=== PATIENT | female | born 1965 | race Two or more races ===

== ENCOUNTER → 2016-07-28 | Outpatient (CLI) | payer BC ==
--- NOTE | ~2016-07-28 | MY11 ---
[facility] A Service of [facility] & [facility] RADIOLOGY TEXT RESULTS PATIENT: ANMOL LAYTON LOCATION: [facility] : 67 UNIT #: [id number] AGE: [address]: BEATRIZ SUAREZ APRN SEX: F ORDER DR: [id number] [facility] [address] [place], [place] [address] [id number] O MR#: [id number] Acc #: [id number] NAME: ANMOL LAYTON : 1965 SEX: F STUDY DATE/TIME: 07/28/2016 9:59 UNIT: [facility] ROOM: STUDY DESCRIPTION: MY Mammogram Screening Dig Kirk Attending Physician: Beatriz Suarez Aprn Referring Physician: Beatriz Suarez Aprn Ordering Physician: Beatriz Suarez Aprn Primary Care Physician: Beatriz Suarez Aprn MEDICAL IMAGING REPORT This report is preliminary unless electronic signature is present EXAM Bilateral digital screening mammogram CAD DATE 07/28/2016 HISTORY No personal or family history of breast cancer or current complaints. COMPARISON None. This is the patient's baseline screening study. FINDINGS CC and MLO views were obtained of each breast utilizing digital technique and reviewed with an FDA-approved CAD device. Scattered fibroglandular densities are present bilaterally. Focal asymmetry is seen within the 12-1 o'clock axis left breast anterior third measuring slightly over 1 cm. It is more conspicuous on the CC view than on the MLO view. While I suspect it represents summation artifact, additional diagnostic imaging would be recommended for confirmation, given this is the patient's baseline exam. 3 small oval circumscribed nodules are demonstrated within the right breast. The largest of these measures approximately 6 mm near the 9 o'clock axis approximately 10 cm deep to the nipple. The second is seen more posteriorly measuring 7 mm, again close to the 9-10 o'clock axis. A third 4 mm nodule is seen near the 9 o'clock axis central third of the breast nearly 7.5 cm deep to the nipple. No suspicious clustered microcalcifications are seen. There is no architectural distortion. No abnormal skin thickening or nipple retraction is identified. [facility] A Service of [facility] & [facility] RADIOLOGY TEXT RESULTS PATIENT: ANMOL LAYTON LOCATION: [facility] : 67 UNIT #: [id number] AGE: [address]: BEATRIZ SUAREZ APRN SEX: F ORDER DR: IMPRESSION 1. BIRADS 0. Additional imaging required. There are 3 circumscribed subcentimeter nodules within the right breast, each close to the 9 to 9-10 o'clock axis. I suspect they represent benign findings such as cysts or intramammary lymph nodes, but confirmation utilizing targeted diagnostic right breast ultrasound would be recommended. 2. Focal asymmetry is demonstrated near the 12 o'clock axis left breast anterior third. While I suspect it represents summation artifact, dedicated spot compression in the mL and MLO plane would be recommended, and at the density persists, diagnostic left breast ultrasound may be obtained on the same day for complete evaluation. BIRADS 0. Patients over the age of 40 are entered into a reminder system with target due date for the next mammogram. A result letter will also be sent to the patient. BIRADS: 0 - Need additional imaging evaluation and/or prior mammograms for comparison Dictated by... Kaitlin Manning M.D. THIS IS AN ELECTRONICALLY VERIFIED REPORT Kaitlin Manning M.D. at 07/31/2016 8:32 AM Hedy TD: 07/28/2016 15:01 JOB #: [id number] MEDICAL IMAGING REPORT Page 1 of 1 COPY
== END | disposition home or self-care (01) ==
LOC: CWCC 09:41
DX: Z12.31 Encounter for screening mammogram for malignant neoplasm of breast (principal); N63 Unspecified lump in breast; N64.89 Other specified disorders of breast
CPT/HCPCS: G0202

== ENCOUNTER → 2016-08-25 | Outpatient (CLI) | payer BC ==
--- NOTE | ~2016-08-25 | US17 ---
[facility] A Service of [facility] & [facility] RADIOLOGY TEXT RESULTS PATIENT: ANMOL LAYTON LOCATION: [facility] : 67 UNIT #: [id number] AGE: [address]: BEATRIZ SUAREZ APRN SEX: F ORDER DR: [id number] [facility] [address] [place], [place] [address] [id number] O MR#: [id number] Acc #: [id number] NAME: ANMOL LAYTON : 1965 SEX: F STUDY DATE/TIME: 08/25/2016 9:23 UNIT: [facility] ROOM: STUDY DESCRIPTION: US Breast Bilateral Attending Physician: Beatriz Suarez Aprn Referring Physician: Beatriz Suarez Aprn Ordering Physician: Beatriz Suarez Aprn Primary Care Physician: Beatriz Suarez Aprn MEDICAL IMAGING REPORT This report is preliminary unless electronic signature is present EXAM Bilateral breast ultrasound COMPARISON Left diagnostic mammogram on the same date as well screening mammogram dated July 28, 2016. INDICATION 51-year-old female with a left breast focal asymmetry thought to reflect summation artifact on today's diagnostic mammography. Left breast ultrasound was indicated for further evaluation. The patient has other findings in the right breast on screening mammography for which sonographic evaluation was recommended. FINDINGS/IMPRESSION Please see separately dictated report of left diagnostic mammography on the same date for full sonographic findings in both breasts today as well as final impression and recommendations. In short, the finding in the left breast is consistent with summation artifact of normal fibroglandular tissues and is benign. In the right breast, 1 of the 3 findings of initial concern corresponds to an intramammary lymph node with normal morphology on sonography. There is a separate probable intramammary lymph node representing 1 of the other mammographic finding which is sonographically occult and the other third finding on screening mammography has the appearance suggesting normal fibroglandular tissue and is the smallest of the 3 findings. Given that these 2 mammographic findings are sonographically occult and the fact that these were seen on the patient's baseline exam, these are probably benign findings for which 6-month followup right diagnostic mammography is recommended to document stability. This may possibly be followed by right breast ultrasound if there is any change. [facility] A Service of [facility] & [facility] RADIOLOGY TEXT RESULTS PATIENT: ANMOL LAYTON LOCATION: [facility] : 67 UNIT #: [id number] AGE: [address]: BEATRIZ SUAREZ RECRUITMENT ASSISTANT SEX: F ORDER DR: BIRADS: 3 Probably benign finding; short interval followup suggested Dictated by... Juan Gaona M.D. THIS IS AN ELECTRONICALLY VERIFIED REPORT Juan Gaona M.D. at 08/30/2016 10:52 AM YASEMIN/corine TD: 08/25/2016 14:14 JOB #: [id number] MEDICAL IMAGING REPORT Page 1 of 1 COPY
--- NOTE | ~2016-08-25 | MY7 ---
[facility] A Service of [facility] & [facility] RADIOLOGY TEXT RESULTS PATIENT: ANMOL LAYTON LOCATION: [facility] : 67 UNIT #: [id number] AGE: [address]: BEATRIZ SUAREZ APRN SEX: F ORDER DR: [id number] [facility] [address] [place], [place] [address] [id number] O MR#: [id number] Acc #: [id number] NAME: ANMOL LAYTON : 1965 SEX: F STUDY DATE/TIME: 08/25/2016 8:55 UNIT: [facility] ROOM: STUDY DESCRIPTION: MY Mammogram Dx Dig Lt Attending Physician: Beatriz Suarez Aprn Referring Physician: Beatriz Suarez Aprn Ordering Physician: Beatriz Suarez Aprn Primary Care Physician: Beatriz Suarez Aprn MEDICAL IMAGING REPORT This report is preliminary unless electronic signature is present EXAM Left digital diagnostic mammogram COMPARISON Baseline screening mammogram dated July 28, 2016. INDICATION 51-year-old female with a left breast 12 o'clock focal asymmetry as well as 3 suspected subcentimeter masses in the right breast. Additional imaging evaluation was recommended with left diagnostic mammography and right breast ultrasound. FINDINGS Spot compression CC as well as spot compression ML and full field ML views of the left breast were obtained. Finding of initial concern in the 12 o'clock anterior third of the left breast, nearly completely effaces and has the appearance of normal fibroglandular tissue, now appearing symmetric to the contralateral side in this location. As a precaution, sonographic evaluation was performed throughout the 12 o'clock left breast and sonographic evaluation of the right breast was performed to evaluate the 3 suspected findings on mammography which span from the 8-8:30 positions of the middle and posterior thirds of the right breast. Sonographic evaluation of the 12 o'clock left breast demonstrated a corresponding island of fibroglandular tissue, accounting for the finding on mammography. This is benign. Sonographic evaluation was performed by the technologist and myself throughout the 7-10 o'clock positions of the right breast. In the 8 o'clock position 6 cm from the nipple, there is an intramammary lymph node measuring 5 mm x 4 mm x 5 mm with normal fatty hilum. The technologist saved separate images of another possible intramammary lymph node but in real time this is favored to represent the same lymph node and the STS. [facility] A Service of [facility] & [facility] RADIOLOGY TEXT RESULTS PATIENT: ANMOL LAYTON LOCATION: [facility] : 67 UNIT #: [id number] AGE: [address]: BEATRIZ SUAREZ MANAGER FUND SEX: F ORDER DR: intramammary lymph node corresponds to 1 of the 3 findings on mammography. Technologist also measures a fat lobule in real time labeled 8 o'clock 2 cm from the nipple, measuring up to 1 cm x 0.9 cm x 0.4 cm. IMPRESSION 1. No mammographic or sonographic evidence of malignancy in the left breast. The finding of initial concern is consistent with summation artifact of normal fibroglandular tissue. 2. There are 3 findings in the right breast on screening mammography, 1 of which corresponds to a benign intramammary lymph node. The other 2 are sonographically occult. The more posterior of these in approximately the 8 o'clock position measuring up to 7 mm labeled number 2 on the original screening mammography appears reniform in shape suggesting another intramammary lymph node and the other finding labeled #3 is suggestive of normal fibroglandular tissue. These are probably benign findings and 6-month followup right diagnostic mammography is recommended to ensure stability of all 3 findings originally described on screening mammogram of July 28, 2016. Findings and recommendations were discussed with the patient upon termination of today's exam. Patients over the age of 40 are entered into a reminder system with target due date for the next mammogram. A result letter will also be sent to the patient. BIRADS: 3 Probably benign finding; short interval followup suggested Dictated by... Juan Gaona M.D. THIS IS AN ELECTRONICALLY VERIFIED REPORT Juan Gaona M.D. at 08/30/2016 10:47 AM YASEMIN/corine TD: 08/25/2016 14:01 JOB #: [id number] MEDICAL IMAGING REPORT Page 1 of 1 COPY
== END | disposition home or self-care (01) ==
LOC: CMAM 08:29
DX: R92.8 Other abnormal and inconclusive findings on diagnostic imaging of breast (principal)
CPT/HCPCS: 76641; G0206